=== PATIENT | female | born 1930 | race Caucasian/White ===

== ENCOUNTER 2016-09-26 13:58 | Emergency (ER) | payer MEDICARE, BC ==
[~2016-09-26 13:58] MED LIST: ARICEPT DPS5 MG PO; ASA CHILDREN'S81 MG PO; BENICAR20 MG PO; CALTRATE-600 W600 MG PO; CRESTOR10 MG PO; HYDRODIURIL-DPS25 MG PO; LEVAQUIN DPS500 MG PO; MICRO-K DPS10 MEQ PO; NORVASC2.5 MG PO; PROTONIX40 MG PO; SURFAK DPS240 MG PO; TYLENOL DPS325 MG PO; ULTRAM DPS50 MG PO; VESICARE5 MG PO; VITAMIN D1000 UNI1 PO; XALATAN2.5 ML OU; ZOLOFT DPS25 MG PO; [UNRECOGNIZED DRUG - OTHER] PO
--- NOTE | 2016-10-07 16:41 | ER ---
ADMIT: 09/26/2016 RM/LOC: [facility] MR#: [id number] [address] [id number] [place] [address] Emergency Room Report SEX: F AGE: 86 : 1930 DATE: 09/26/2016 ADDENDUM: CHIEF COMPLAINT: Fall, hit head. HISTORY OF PRESENT ILLNESS: This is an 86-year-old female who was leaning onto a chair that had wheels, it slipped and she slipped backwards and fell and hit the back side of her head. PAST MEDICAL HISTORY: Hypertension, CMT, hypercholesteremia, and she has had surgery on her ankles and feet. MEDICATIONS: Please see nurse's note. She denies any blood thinners. ALLERGIES: NO KNOWN ALLERGIES. SOCIAL HISTORY: Denies any tobacco, drug use. Does drink alcohol occasionally. She lives at [facility]. REVIEW OF SYSTEMS: CONSTITUTIONAL: Denies any fevers, chills, or sweats. CARDIOVASCULAR and RESPIRATORY: Denies any chest pain or shortness of breath. GI and : She said she is a little bit nauseated, but has not had any vomiting. NEURO: She complains of a slight headache. All systems otherwise negative. PHYSICAL EXAMINATION: VITAL SIGNS: Blood pressure is 124/57, pulse is 59, respirations 16, temperature is 98.2, tympanic, and saturation of oxygen is 96% on room air. GENERAL APPEARANCE: She is no acute distress and alert. HEENT: She has hearing aids bilateral. Her pharynx is moist. No tonsillar swelling or erythema. She has no bite tadeo. Eyes are PERRL and EOMs intact. She does have a slight irregularity of her left pupil which she said is chronic from her cataract surgery. There is a slight swelling to the base of her skull. NECK: She does have some midline tenderness. HEART: Regular rate and rhythm. LUNGS: CTA bilateral. ADMIT: 09/26/2016 RM/LOC: [facility] MR#: [id number] [address] [id number] [place] [address] Emergency Room Report SEX: F AGE: 86 : 1930 ABDOMEN: Soft, nontender. No distention. SKIN: Normal color. Warm and dry. No rashes noted. No signs of bruising. BACK: No midline tenderness or CVA tenderness. MUSCULOSKELETAL: She has full range of motion with all extremities. No signs of trauma to the extremities. COURSE IN EMERGENCY ROOM: CT of her head and neck was done, is negative for any acute findings. CLINICAL IMPRESSION: Contusion to head and neck. DISPOSITION: Told her to take Tylenol for pain and follow up with her doctor as needed. JOSEF Lu / Conner Ontiveros MD / bautista JOB #: [id number] CC: Rian Lucas MD, Attending Physician
== END 2016-09-26 16:10 | disposition home or self-care (01) ==
LOC: ER 13:58
DX: S10.93XA Contusion of unspecified part of neck, initial encounter (principal); S00.93XA Contusion of unspecified part of head, initial encounter; I10 Essential (primary) hypertension; W01.0XXA Fall on same level from slipping, tripping and stumbling without subsequent striking against object, initial encounter